=== PATIENT | male | born 1970 | race Two or more races ===

== ENCOUNTER 2018-08-16 11:12 | Outpatient (CLI) | payer OTHER | END 2018-08-16 11:26 | disposition home or self-care (01) | LOC: NUCLEAR 11:12 | DX: I11.9 Hypertensive heart disease without heart failure (principal); I34.1 Nonrheumatic mitral (valve) prolapse ==

== ENCOUNTER 2019-12-15 10:09 | Outpatient (CLI) | payer OTHER | END 2019-12-15 10:36 | disposition home or self-care (01) | LOC: SONOGRAMA 10:09 → MAMO-SONO 10:45 | DX: D51.1 Vitamin B12 deficiency anemia due to selective vitamin B12 malabsorption with proteinuria (principal); E06.3 Autoimmune thyroiditis; I10 Essential (primary) hypertension; E78.2 Mixed hyperlipidemia; E55.9 Vitamin D deficiency, unspecified; F33.8 Other recurrent depressive disorders ==

== ENCOUNTER → 2020-08-12 15:17 | Outpatient (CLI) | payer OTHER | END | disposition home or self-care (01) | LOC: LAB 15:17 | PROVIDERS: ATTEND Internal Medicine Hematology & Oncology | DX: D50.8 Other iron deficiency anemias (principal); I10 Essential (primary) hypertension; D55.0 Anemia due to glucose-6-phosphate dehydrogenase [G6PD] deficiency; D51.1 Vitamin B12 deficiency anemia due to selective vitamin B12 malabsorption with proteinuria; D51.0 Vitamin B12 deficiency anemia due to intrinsic factor deficiency; E03.8 Other specified hypothyroidism; E06.3 Autoimmune thyroiditis; R97.0 Elevated carcinoembryonic antigen [CEA]; R97.8 Other abnormal tumor markers; F33.8 Other recurrent depressive disorders; E55.9 Vitamin D deficiency, unspecified ==

== ENCOUNTER 2020-11-14 16:08 | Outpatient (CLI) | payer OTHER | END 2020-11-14 16:25 | disposition home or self-care (01) | LOC: RAD 16:08 | PROVIDERS: ATTEND Internal Medicine Rheumatology | DX: M54.5 Low back pain (principal); M15.0 Primary generalized (osteo)arthritis ==

== ENCOUNTER 2020-12-09 16:47 | Outpatient (CLI) | payer OTHER | END 2020-12-09 17:08 | disposition home or self-care (01) | LOC: LAB 16:47 | PROVIDERS: ATTEND Internal Medicine Geriatric Medicine | DX: N39.0 Urinary tract infection, site not specified (principal); C61 Malignant neoplasm of prostate ==